=== PATIENT | male | born 1975 | race Two or more races ===

== ENCOUNTER 2023-10-27 09:12 | Day surgery (SDC) | payer OTHER, SELFPAY ==
[2023-10-25 14:24] VITALS: BMI 34.0
[2023-10-25 14:40] VITALS: BMI 34.0
--- NOTE | 2023-10-26 09:35 | HO.ANESPROP2 ---
Documented by User: Korina Fox NP 10/26/23 09:39 HPI - Anesthesia Eval Consult details Narrative: 48yo M for Upper Endoscopy and Colonoscopy Pseudocholinesterase deficiency PMFSH Past Medical History Medical History Family history of pseudocholinesterase deficiency Pseudocholinesterase deficiency Headache Hyperlipidemia PTSD (post-traumatic stress disorder) Anxiety Surgical History Surgical History Hx of carpal tunnel repair Hx of elbow surgery Hx of knee surgery Hx of tonsillectomy Hx of appendectomy Social History Social History Are you a primary critical care transport nurse to a significant other at home: No Do you presently have visiting nurse or other home services: No Patient Tobacco Use Status: Never used Tobacco Use of substances other than those prescribed or required for medical reasons: No Have you been hit, kicked, punched, or otherwise hurt by someone within the past year? If so, by whom?: No Are you DNR?: No Advance Directives: No Advance Directives Information Provided: Yes Advance Directives on File: No Recently lost weight without trying: No Nutrition Risks: No Nutritional Risk Meds Allergies Allergy/AdvReac Type Severity Reaction Status Date / Time shellfish derived Allergy Severe Anaphylaxis Verified 10/27/23 09:39 succinylcholine Allergy Severe inability Verified 10/27/23 09:39 to awaken from anesthesia-age 13-appendectomy Home Medications ?Medication ?Instructions ?Recorded ?Confirmed ?Last Taken ?Type No Known Home Meds 10/27/23 10/27/23 Unknown History Exam Height,Weight and Vital Signs: Height 5 ft 5 in Weight 92.76 kg Assessment and Plan Assessment Anesthesia Assessment: Chart Reviewed Documented by User: Beryl Hernández MD 10/27/23 10:29 PMFSH Past Medical History Medical History Family history of pseudocholinesterase deficiency Pseudocholinesterase deficiency Headache Hyperlipidemia PTSD (post-traumatic stress disorder) Anxiety Family History Family history of problems with anesthesia: Yes (pseudocholinesterase df) Surgical History Surgical History Hx of carpal tunnel repair Hx of elbow surgery Hx of knee surgery Hx of tonsillectomy Hx of appendectomy History of Problems with Anesthesia: Yes (pseudocholinesterase def) Social History Social History Are you a primary critical care transport nurse to a significant other at home: No Do you presently have visiting nurse or other home services: No Patient Tobacco Use Status: Never used Tobacco Use of substances other than those prescribed or required for medical reasons: No Have you been hit, kicked, punched, or otherwise hurt by someone within the past year? If so, by whom?: No Are you DNR?: No Advance Directives: No Advance Directives Information Provided: Yes Advance Directives on File: No Recently lost weight without trying: No Nutrition Risks: No Nutritional Risk Meds Allergies Allergy/AdvReac Type Severity Reaction Status Date / Time shellfish derived Allergy Severe Anaphylaxis Verified 10/27/23 09:39 succinylcholine Allergy Severe inability Verified 10/27/23 09:39 to awaken from anesthesia-age 13-appendectomy Home Medications ?Medication ?Instructions ?Recorded ?Confirmed ?Last Taken ?Type No Known Home Meds 10/27/23 10/27/23 Unknown History Exam Airway Mallampati Class: II TM Dist: <=3cm Neck ROM: Full Heart: rrr Lungs: cta Assessment and Plan Assessment Anesthesia Assessment: Anesthesia Plan Discussed Final Anesthetic Review Family History of Problems with Anesthesia: Yes (pseudocholinesterase df) History of Problems with Anesthesia: Yes (pseudocholinesterase def) NPO: Yes ASA Class: II Final Preanesthetic Review: No Changes in Pt Med Stat, Meds/Allgs Chart Reviewed, Consent Obtained/Reviewed and Anes Risks/Benef Reviewed Patient Risk: Low Procedure Risk: Low Anesthetic Plan Anesthetic Plan: MAC: Disposition: Standard PACU
[2023-10-27] VITALS (7 sets, daily range): BP systolic 104–131; BP diastolic 59–73; PULSE 50–62; RESP 14–18; TEMP 36.3–36.4; O2SAT 95–98
--- NOTE | 2023-10-27 10:09 | P.HPSUR_ITS ---
Pre-Procedural Eval Section A - 24 Hr Update-Section A only Date of Service: 10/27/23 Section B - Complete if H&P > 30 days Chief Complaint: Generalized abdominal pain,screening Details of Present Illness: see H&P no changes Relevant Family History (Specify if Yes): No Relevant Social History: None Present Medications: see Short Stay Collaborative assessment Medical History: No relevant PMH History of Previous Operations: No relevant previous surgery Allergies: Allergies Allergy/AdvReac Type Severity Reaction Status Date / Time shellfish derived Allergy Severe Anaphylaxis Verified 10/27/23 09:39 succinylcholine Allergy Severe inability Verified 10/27/23 09:39 to awaken from anesthesia-age 13-appendectomy Review of Systems Sugical H&P ROS: Negative: Constitution, Cardiovascular, Respiratory, Neurologi kaley, Psychiatric, Hem-Onc, Allergic/Immunologic, Gastrointestinal, Genitourinary, Musculoskeletal, Integumentary, Endocrine and Eyes/Ears/Nose/Throat Exam Surgical H&P Exam: Normal: HEENT, Normal: Heart, Normal: Lungs, Normal: Extremities, Normal: Abdomen, Normal: Skin and Normal: Neurological Plan Diagnosis/Plan: Unchanged I have reviewed the history and physical and performed a pertinent physical examination on my patient. No changes have occurred unless specified. Time Spent With Patient Time: Total time managing care of this patient today ____ minutes.
[2023-10-27] MEDS: Lactated Ringers 1,000 ML 100 ML IVCONT (10:11)
--- NOTE | 2023-10-27 11:25 | OP_ITS ---
DATE OF SERVICE: 10/27/2023 SURGEON: Nirmal Michaels MD INDICATIONS: Abdominal pain and colon cancer screening. PREOPERATIVE DIAGNOSIS: POSTOPERATIVE DIAGNOSIS: PROCEDURE PERFORMED: Colonoscopy to the terminal ileum with biopsy, upper endoscopy with biopsy. ESTIMATED BLOOD LOSS: COMPLICATIONS: ANESTHESIA: Monitored anesthesia care. ASSISTANTS: SPECIMENS: DESCRIPTION OF PROCEDURE: A history and physical was performed. The risks and benefits of the procedure were explained to the patient. Informed consent was obtained. The patient was placed in the left lateral decubitus position. A digital rectal exam was performed and was found to be normal. The Olympus pediatric video colonoscope was introduced into the rectum and advanced to the cecum. The cecum was identified by transillumination, palpation, and identification of ileocecal valve examination was performed. The scope was removed. He tolerated the procedure well. The patient was repositioned for upper endoscopy. The Olympus video gastroscope was introduced into the esophagus, stomach, and duodenum. Examination was performed. The scope was removed. He tolerated both procedures well and was returned to the recovery area in stable condition. FINDINGS: Upper endoscopy: 1. Esophagus: The esophagus was normal. The biopsies were obtained at 25 cm and from the EG junction. 2. Stomach: The stomach showed no evidence of masses, ulcers, or colitis. Antral biopsies were obtained to evaluate for H pylori. 3. Duodenum: The bulb and 2nd portion were normal. Biopsies were obtained from the 2nd portion. Colonoscopy: The terminal ileum was normal. The visualized colonic mucosa was normal. The quality of the prep was good. No polyps were identified. Retroflexed examination showed small internal hemorrhoids. Random sigmoid biopsies were obtained to evaluate for microscopic colitis. IMPRESSION: 1. Normal upper endoscopy. 2. Normal colonoscopy. RECOMMENDATION: 1. Follow up the biopsy results. 2. Repeat colonoscopy is recommended in 10 years for average-risk individuals. MD CAROLINE Peacock/JAY / [phone]
== END 2023-10-27 13:15 | disposition home or self-care (01) ==
PROVIDERS: PCP Family Medicine; Visit Provider Internal Medicine Gastroenterology
PROC: (CPT 45380; principal; 2023-10-27 10:50)
DX: Z12.11 Encounter for screening for malignant neoplasm of colon (principal); K64.8 Other hemorrhoids; R10.84 Generalized abdominal pain; K29.50 Unspecified chronic gastritis without bleeding; E78.5 Hyperlipidemia, unspecified; R51.9 Headache, unspecified; F41.9 Anxiety disorder, unspecified; F43.10 Post-traumatic stress disorder, unspecified; Z79.899 Other long term (current) drug therapy; Z88.8 Allergy status to other drugs, medicaments and biological substances; Z98.890 Other specified postprocedural states
CPT/HCPCS: 45380; 43239; 88305; 88313; 88342; J1100; J1596; J2250; J2704

== ENCOUNTER 2024-02-14 13:37 | Emergency (ER) | payer OTHER, SELFPAY ==
--- NOTE | ~2024-02-14 | US_ITS ---
EXAMINATION: US TRIPLEX LOWER EXTREMITY, RIGHT CLINICAL INFORMATION: Pain and swelling, right lower extremity COMPARISON: None available. TECHNIQUE: Color-flow triplex imaging with spectral analysis and compression Doppler were performed on the right lower extremity. FINDINGS: Respiratory variation, normal compression and augmented flow are noted throughout the right lower extremity. The visualized common femoral vein, superficial femoral vein, profunda femoral vein, popliteal vein and midcalf peroneal and posterior tibial venous segments show no evidence of deep venous thrombosis. There is no Gary's cyst. US/US venous duplex LE RT IMPRESSION: No acute deep venous thrombosis in the interrogated veins, right lower extremity. Electronically signed by: Sher Zuniga MD 02/14/2024 02:57 PM EST
[2024-02-14 13:39] VITALS: BP 133/80; PULSE 66; RESP 19; TEMP 36.6; O2SAT 99; BMI 29.0
--- NOTE | 2024-02-14 13:40 | ED.GENADULT ---
HPI - General Adult General Chief complaint: Extremity Injury, Lower Stated complaint: R leg pain Time Seen by Provider: 02/14/24 13:57 Source: patient and RN notes reviewed Mode of arrival: ambulatory Limitations: no limitations History of Present Illness ED Provider: Candis Brody PA-C HPI narrative: This is a 48-year-old male who presents emergency department with complaints of right leg pain x3 days. Patient states that he was cleaning in a granite table fell onto his right leg. He states that table was only on his leg for several seconds. He states he has had pain to his right leg since. He has been able to walk on the leg however reports that this increases his pain. He has not taken any medications to treat his current symptoms. No chest pain or shortness of breath. No other complaints or concerns MD complaint: Leg pain Onset (ago): day(s) Pain Consistency: constant Relieving factors: rest Exacerbating factors: movement Associated symptoms: denies other symptoms Treatments prior to arrival: none Related Data Home Medications ?Medication ?Instructions ?Recorded ?Confirmed No Known Home Meds 10/27/23 10/27/23 Allergies Allergy/AdvReac Type Severity Reaction Status Date / Time shellfish derived Allergy Severe Anaphylaxis Verified 02/14/24 13:42 succinylcholine Allergy Severe inability Verified 02/14/24 13:42 to awaken from anesthesia-age 13-appendectomy Review of Systems Review of Systems: Yes all other systems are reviewed and are negative PMFSH Past Medical History Medical History Family history of pseudocholinesterase deficiency Pseudocholinesterase deficiency Headache Hyperlipidemia PTSD (post-traumatic stress disorder) Anxiety Surgical History Hx of carpal tunnel repair Hx of elbow surgery Hx of knee surgery Hx of tonsillectomy Hx of appendectomy Social History Social History Are you a primary ocular care technician to a significant other at home: No Do you presently have visiting nurse or other home services: No Patient Tobacco Use Status: Never used Tobacco Advance Directives: No Advance Directives Information Provided: Yes Do you have a plan to hurt others: No Plan Physical Exam ED Vital Signs: Vital Signs - 24 hr 02/14/24 13:39 Temperature 98 F Pulse Rate 66 Respiratory Rate 19 Blood Pressure 133/80 Pulse Oximetry 99 Oxygen Delivery Method Room Air BMI result Body Mass Index 29.0 Const Other: General: Awake, alert, and oriented X3. No acute distress. HEENT: Normal inspection CVS: Normal heart rate and rhythm. Pulses normal. Respiratory: No respiratory distress Skin: Warm, dry, no rashes noted to exposed skin. Normal skin color. Normal skin turgor. Extremities: Right leg is well perfused, capillary refill less than 2 seconds. He has tenderness palpation along the lateral aspect of the right calf. Calf is soft, compartments are soft. No overlying skin changes, warmth, erythema or edema. Able to flex and extend at the knee. Able to dorsi and plantar flex without difficulty. DP pulse are 2+ Neuro: Oriented X 3. No motor deficit. No sensory deficit. Course Course Course Narrative: This is a rapid medical exam performed by Jina Ho NP: Additional HPI, ROS, PE not included below will be deferred to primary provider. Patient is a 48 year old male presenting with right calf pain and swelling after a table fell on that area Monday. Thought symptoms would have improved by now, rates pain at 9/10. Plan: U/S Medical Decision Making Medical Decision Making MDM Narrative: This is a 48-year-old male who presents emergency department with complaints of right leg pain after a table fell onto his leg 3 days ago. On arrival, vital signs within normal limits. He is speaking full sentences under no acute distress. He has no bony tenderness on examination. He does have tenderness along the right lateral calf. Compartments are soft. Ultrasound was obtained revealing no DVT. Given no bony tenderness, and he is ambulatory, x-ray was deferred. He denies taking any medications at home. He is ambulatory. Given strict return precautions. Patient stable for discharge Differential Diagnosis Differential Diagnoses: The differential diagnosis associated with the presentation includes Contusion, DVT, compartment syndrome-unlikely, fracture unlikely Radiology Impression Discussion of test interpretation with radiology: I have reviewed the radiologist's reading. Radiologist Impression: [address] [id number] Ultrasound Report Signed Patient: Leyla Carey MR#: [id number] : 1975 Acct:[id number] Age/Sex: 48 / M ADM Date: 02/14/24 Loc: HO.ED Attending Dr: Ordering Physician: Ruchi Ho NP Date of Service: 02/14/24 Procedure(s): US venous duplex LE RT Accession Number(s): [id number] cc: SYD RODRIGUES MD; Ruchi Ho NP~ EXAMINATION: US TRIPLEX LOWER EXTREMITY, RIGHT CLINICAL INFORMATION: Pain and swelling, right lower extremity COMPARISON: None available. TECHNIQUE: Color-flow triplex imaging with spectral analysis and compression Doppler were performed on the right lower extremity. FINDINGS: Respiratory variation, normal compression and augmented flow are noted throughout the right lower extremity. The visualized common femoral vein, superficial femoral vein, profunda femoral vein, popliteal vein and midcalf peroneal and posterior tibial venous segments show no evidence of deep venous thrombosis. There is no Gary's cyst. US/US venous duplex LE RT IMPRESSION: No acute deep venous thrombosis in the interrogated veins, right lower extremity. Electronically signed by: Sher Zuniga MD 02/14/2024 02:57 PM [facility] Dictated By: Sher Ramirez MD Signed By: <Electronically signed by Sher Baron MD in OV> Discharge Plan Discharge Clinical Impression: Contusion of leg, right Patient Disposition: Home, Self-Care Instructions: Contusion in Adults (ED) Additional Instructions: You were seen in the emergency department due to injuring her right leg. Your ultrasound did not show any blood clots or cyst. Please rest, ice, elevate your leg, and stay off your leg over the next couple of days. Alternating between ibuprofen and Tylenol can also be helpful for your pain. If any new or worsening symptoms occur including but not limited to significant worsening of your pain, please return for re-evaluation. Prescriptions: No Action No Known Home Meds Print Language: Libyan
[2024-02-14 16:42] VITALS: BP 133/85; PULSE 60; RESP 16; TEMP 36.6; O2SAT 98
== END 2024-02-14 16:48 | disposition home or self-care (01) ==
PROVIDERS: Emergency Provider Emergency Medicine; PCP Family Medicine
DX: S80.11XA Contusion of right lower leg, initial encounter (principal); W20.8XXA Other cause of strike by thrown, projected or falling object, initial encounter; M79.604 Pain in right leg; Y93.9 Activity, unspecified; Y92.9 Unspecified place or not applicable; Y99.9 Unspecified external cause status
CPT/HCPCS: 93971; 99282; 99284

== ENCOUNTER → 2024-02-14 13:41 | Outpatient (BNV) | payer OTHER, SELFPAY | PROVIDERS: PCP Family Medicine; Visit Provider Radiology Diagnostic Radiology | DX: R22.41 Localized swelling, mass and lump, right lower limb (principal); M79.604 Pain in right leg | CPT/HCPCS: 93971 ==